=== PATIENT | male | born 1970 | race Caucasian/White ===

== ENCOUNTER 2016-08-10 19:36 | Emergency (ER) | payer OTHER ==
[2016-08-10] MEDS ORDERED: Rocephin 1000 MG INJ IM ONE (20:02)
[2016-08-10] MEDS ORDERED: CLEOCIN 150 MG CAPSULE PO ONE ×3 (20:02→20:03)
[2016-08-10] MEDS ORDERED: XYLOCAINE 1% HCL 20 ML MDV ONE (20:06)
[2016-08-10] MEDS ORDERED: Rocephin 1000 MG INJ ONE (20:06)
[2016-08-10] MEDS ORDERED: CLEOCIN 150 MG CAPSULE ONE (20:06)
--- NOTE | 2016-08-10 20:10 | ERPHSYRPT ---
- History of Present Illness Time Seen by Provider: 08/10/16 19:56 Source: patient Exam Limitations: no limitations Patient Subjective Stated Complaint: pt states when he got up this morning he had a blister on his finger, now his had is swollen and red. Triage Nursing Assessment: pt alert and oriented.answers questions appop. pt ambulatory with steady gait noted. respirations nonlabored with lungs cta. blister noted to rt 3rd digit with redness, warmth and swelling in finger and hand. Physician History: THIS AM PT NOTICED AN ERYTHEMATOUS PRURITIC SWOLLEN RED BLISTER ON HIS RIGHT MIDDLE FINGER. THE ERYTHEMA AND SWELLING SPREAD TO THE DISTAL DORSUM OF THE RIGHT HAND. PT DENIES FEVER, NUMBNESS, CHEST PAIN, SHORTNESS OF AIR; ADMITS TO COUGH PRODUCTIVE OCCASIONALLY OF CLEAR PHLEGM FOR THE PAST 2 DAYS. Allergies/Adverse Reactions: No Known Drug Allergies Allergy (Unverified 08/10/16 19:55) Home Medications: Aspirin [Aspirin EC] 81 mg PO DAILY 08/10/16 [History] Fexofenadine HCl [Marzena] 180 mg PO DAILY 08/10/16 [History] Multivitamin [Multivitamins] 1 each PO DAILY 08/10/16 [History] Hx Tetanus, Diphtheria Vaccination/Date Given: Yes Hx Influenza Vaccination/Date Given: No Hx Pneumococcal Vaccination/Date Given: No Immunizations Up to Date: Yes - Review of Systems Constitutional: No Fever Respiratory: Cough, No Dyspnea Cardiac: No Chest Pain Musculoskeletal: Other (SWELLING AND REDNESS OF THE RIGHT HAND.) All Other Systems: Reviewed and Negative - Past Medical History Pertinent Past Medical History: Yes Respiratory History: Pulmonary Embolism Other Medical History: hx of mrsa in rt knee last year - Past Surgical History Past Surgical History: Yes Gastrointestinal: Hernia Repair Musculoskeletal: Orthopedic Surgery Male Surgical History: Vasectomy - Social History Smoking Status: Former smoker Exposure to second hand smoke: Yes Drug Use: none Patient Lives Alone: No - Nursing Vital Signs Nursing Vital Signs: Initial Vital Signs Temperature 98.4 F Temperature Source Oral Pulse Rate 114 Respiratory Rate 18 Blood Pressure [Left Arm] 156/107 Pain Intensity 2 - Physical Exam General Appearance: alert Eyes, Ears, Nose, Throat Exam: TMs normal, pharynx normal, moist mucous membranes Neck Exam: normal inspection Cardiovascular/Respiratory Exam: normal breath sounds, heart sounds normal Abdominal Exam: soft (B.S. NORMAL) Back Exam: normal range of motion Shoulder Exam: normal ROM Elbow/Forearm Exam: normal ROM Wrist Exam: normal ROM Hand Exam: normal ROM, swelling (MILD EDEMA, ERYTHEMA AND WARMTH OF THE DISTAL DORSAL ASPECT OF THE RIGHT HAND AND PROXIMAL RIGHT MIDDLE FINGER. ALL DIGITS OF THE RIGHT HAND HAVE GOOD SENSATION, ROM AND CAPILLARY REFILL. 1/2 CM DIAMETER NON-FLUCTUANT NODULE OVER THE PROXIMAL DORSAL ASPECT OF THE RIGHT MIDDLE FINGER. ) Neuro/Tendon Exam: normal sensation, normal motor functions, normal tendon functions Mental Status Exam: alert, cooperative SpO2 Interpretation: normal SpO2: 96 Oxygen Delivery: Room Air - Course Nursing assessment & vital signs reviewed: Yes Ordered Tests: Medication Summary Discontinued Medications Generic Name Dose Route Start Last Admin Trade Name Freq PRN Reason Stop Dose Admin Ceftriaxone Sodium 1,000 mg 08/10/16 20:02 Rocephin 1000 Mg Inj IM 08/10/16 20:03 STAT ONE Clindamycin HCl 300 mg 08/10/16 20:02 Cleocin 150 Mg Capsule PO 08/10/16 20:03 STAT ONE Clindamycin HCl 300 mg 08/10/16 20:02 Cleocin 150 Mg Capsule PO 08/10/16 20:03 STAT ONE - Departure Time of Disposition: 20:19 Departure Disposition: Home Clinical Impression: CELLULITIS OF THE RIGHT HAND Condition: Fair Critical Care Time: No Instructions: Cellulitis -- Adult Additional Instructions: FOLLOW UP WITH PRIVATE DOCTOR TOMORROW. ELEVATE RIGHT HAND ABOVE HEART LEVEL FOR 24 HOURS. Prescriptions: Clindamycin HCl 300 mg PO Q6H #40 capsule
[2016-08-10 20:32] VITALS: BP 140/90; PULSE 95; O2SAT 98
== END 2016-08-10 20:31 | disposition home or self-care (01) ==
LOC: ED 19:36
DX: L03.113 Cellulitis of right upper limb (principal)
CPT/HCPCS: 96372; 99284; J0696; A9270-GY